=== PATIENT | female | born 2000 | race Caucasian/White ===

== ENCOUNTER 2022-10-17 10:26 | Emergency (ER) | payer OTHER, SELFPAY ==
[2022-10-17 11:42] VITALS: BP 117/63; PULSE 80; RESP 18; TEMP 36.7; O2SAT 100
--- NOTE | 2022-10-17 12:14 | ED.URI ---
HPI - URI/Sore Throat General Chief Complaint: Upper Respiratory Infection Stated Complaint: sorethroat Time Seen by Provider: 10/17/22 11:50 Source: patient Mode of arrival: ambulatory Limitations: no limitations History of Present Illness HPI Narrative: Tyrone is a 22-year-old female patient presenting to clinic today with complaints of sore throat x2 days. She denies any fever chills. She does have some nasal congestion. MD elicited complaint: sore throat and nasal congestion Related Data Home Medications Medication Instructions Recorded Confirmed No Home Medications 10/17/22 10/17/22 Allergies Allergy/AdvReac Type Severity Reaction Status Date / Time No Known Drug Allergies Allergy Unknown Other Verified 10/17/22 11:47 Review of Systems Review of Systems: Pertinent positives per HPI. Patient denies any fever, chills, rash, headache, visual changes, dizziness, cough, shortness of breath, chest pain, palpitations, nausea, vomiting, diarrhea, constipation, abdominal pain, or any urinary issues. PMFSH Comments At the time of my signature, I reviewed and agree with the nursing past medical, surgical, social, and family history. There is no relevant family history pertinent to the patient complaint. Exam Narrative: General: Well-developed, well nourished, in no apparent distress Head: Normocephalic, atraumatic Eyes: Pupils equally round and reactive to light bilaterally, EOM intact, sclera and conjunctive clear, no discharge, lids normal Ears: TMs intact and clear, ear canals clear, no drainage, grossly hearing normal. Nose: Nares patent, clear nasal discharge, no inflammation, no sinus tenderness. Mouth: Oral pharynx without lesions or masses, good dentition, MMM. Oropharynx red , postnasal drip Neck: Supple, trachea midline, no enlargement of anterior or posterior cervical nodes, no thyroid masses or goiter palpable. Cardio: Regular rate and rhythm, s1 and s2 normal, no murmur appreciated. Resp: Clear to auscultation bilaterally, no rhonchi, rales, wheezing or rubs Course Course Emergency Course: Portions of this record may have been created with voice recognition software. Level of Care: Express Care Visit Vital Signs Vital signs: Vital Signs Temperature 36.7 C 10/17/22 11:42 Pulse Rate 80 10/17/22 11:42 Respiratory Rate 18 10/17/22 11:42 Blood Pressure 117/63 10/17/22 11:42 Pulse Oximetry 100 10/17/22 11:42 Oxygen Delivery Room Air 10/17/22 11:42 Temperature 36.7 C 10/17/22 11:42 Pulse Rate 80 10/17/22 11:42 Respiratory Rate 18 10/17/22 11:42 Blood Pressure 117/63 10/17/22 11:42 Pulse Oximetry 100 10/17/22 11:42 Oxygen Delivery Room Air 10/17/22 11:42 Vital signs reviewed MDM - URI/Sore Throat MDM Narrative Medical decision making narrative: at the time of visit patient is resting comfortably on the exam table. Strep screen was obtained was negative in the clinic today. I suspect patient has viral pharyngitis / postnasal drip. Supportive measures were discussed with the patient she voiced understanding of discharge instructions and agrees to treatment plan Differential Diagnosis Differential diagnosis: Likely sinusitis, viral infection, influenza and pharyngitis Lab Data Labs: Strep Screen Presumptive Negative *(Reference Range: Negative)* Discharge Plan Discharge Clinical Impression: Pharyngitis, PND (post-nasal drip) Patient Disposition: Home, Self-Care Condition: Stable Instructions: Antibiotic Form, Pharyngitis (ED), Postnasal Drip (DC) Additional Instructions: Strep screen was negative in the clinic today. We will send for culture Increase fluids and stay well hydrated Tylenol/motrin for pain/fever Flonase and OTC antihistamines as directed Vicks vapor rub to open sinuses Sinus rinses for congestion Cepacol spray, cough drops, throat татьяна
== END 2022-10-17 12:12 | disposition home or self-care (01) ==
PROVIDERS: Emergency Provider Nurse Practitioner Family
DX: J02.9 Acute pharyngitis, unspecified (principal); R09.82 Postnasal drip
CPT/HCPCS: 87081; 87880; 99213; G0463

== ENCOUNTER 2024-07-31 10:25 | Emergency (ER) | payer MEDICAID, SELFPAY ==
--- NOTE | 2024-07-31 10:37 | ED.URI ---
HPI - URI/Sore Throat General Chief Complaint: Upper Respiratory Infection Stated Complaint: Sore throat/ Bilateral Ear Pain History of Present Illness HPI Narrative: patient is a 24 year female, past medical history significant for seasonal allergies presents to [facility] care with 2 day history of sore throat, ear pain, malaise/fatigue and suspected fever. She is just starting to cough today.She denies known sick contacts or COVID-19 exposures. She is taking [id number] cold medication with minimal symptom relief. She denies any additional associated symptoms modifying factors. She is not . Related Data Home Medications Medication Instructions Recorded Confirmed norethindrone 1 mg-ethinyl 1 tablet PO DAILY 07/31/24 07/31/24 estradiol 10 mcg (24)-iron 10 mcg(2) tablet (Lo Loestrin Fe) Allergies Allergy/AdvReac Type Severity Reaction Status Date / Time No Known Drug Allergies Allergy Unknown Other Verified 07/31/24 10:31 Review of Systems ENT: Comments: refer to HPI Exam Const: General: healthy appearing, no acute distress and alert Nutritional Appearance: well nourished Orientation/consciousness: patient oriented x3 Limitations: no limitations HENMT: Head: normal to inspection Ears: external ears normal and TM abnormal other ( TMs are retracted markedly) Face/Nose/Sinus: Normal external nose present and Normal nares present Face and sinus: normal facial exam and sinuses nontender Mouth: Yes Normal oral and palatal mucosa present Teeth and gingiva: dentition normal Throat: uvula midline Other: Patient has cobblestoning to the pharyngeal mucosa, no exudate, no tonsillar hypertrophy, uvula is midline, no trismus Eyes: Conjunctivae: conjunctivae normal Pupils: Equal, round and reactive pupils present EOM: EOMs intact bilaterally Neck: Neck: normal visual inspection, no lymphadenopathy and no meningeal signs Resp: Effort & Inspection: normal respiratory effort Auscultation: clear to auscultation bilaterally Cardio: Rate: regular rate Rhythm: regular rhythm Skin: General skin exam: normal color Rashes: no rashes Neuro: General: patient oriented x3, moves all extremities, no meningeal signs, no focal motor deficits and CN's II-XI intact bilaterally Cranial nerves: Yes Nystagmus not present Speech: normal speech Gait exam (Neuro): Normal gait present Extrem: General: normal to inspection Course Course Emergency Course: strep and COVID are negative, strep culture will reflex. Level of Care: Express Care Visit (19437) Vital Signs Vital signs: Vital Signs Temperature 36.7 C 07/31/24 10:38 Pulse Rate 77 07/31/24 10:38 Respiratory Rate 16 07/31/24 10:38 Blood Pressure 126/68 07/31/24 10:38 Pulse Oximetry 100 07/31/24 10:38 Oxygen Delivery Room Air 07/31/24 10:38 Temperature 36.7 C 07/31/24 10:38 Pulse Rate 77 07/31/24 10:38 Respiratory Rate 16 07/31/24 10:38 Blood Pressure 126/68 07/31/24 10:38 Pulse Oximetry 100 07/31/24 10:38 Oxygen Delivery Room Air 07/31/24 10:38 MDM - URI/Sore Throat MDM Narrative Medical decision making narrative: Patient has an exam and HPI consistent with a viral syndrome. Will treat with short steroid course, cough suppressant, pushing fluids, [id number] Zyrtec or Claritin and Tylenol may be continued for discomfort. Follow up with PCP in 3-5 days if symptoms not improving. Patient is agreeable plan. Differential Diagnosis Differential diagnosis: Likely upper respiratory infection, otitis media, sinusitis, pharyngitis and other ( Postnasal drip) Lab Data Labs: Lab Results 07/31/24 07/31/24 Range/Units 10:53 10:58 POC SARS CoV-2 Ag Negative (Negative) POC Grp A Strep Screen Negative (Negative) Discharge Plan Discharge Clinical Impression: Upper respiratory infection Qualifiers: URI type: acute nasopharyngitis (common cold) Qualified Code(s): J00 -
[2024-07-31 10:38] VITALS: BP 126/68; PULSE 77; RESP 16; TEMP 36.7; O2SAT 100
[2024-07-31 10:54] LABS: EDSTREPNEGPOS1 Negative (Negative)
[2024-07-31 11:00] LABS: EDCOVIDSCREEN Negative (Negative)
== END 2024-07-31 11:12 | disposition home or self-care (01) ==
PROVIDERS: Emergency Provider Nurse Practitioner Family
DX: J06.9 Acute upper respiratory infection, unspecified (principal); J00 Acute nasopharyngitis [common cold]; Z20.822 Contact with and (suspected) exposure to COVID-19
CPT/HCPCS: 87081; 87635; 87880; 99213; G0463

== ENCOUNTER 2025-09-03 09:33 | Outpatient (CLI) | payer OTHER, MEDICAID, SELFPAY ==
--- NOTE | 2025-09-03 | ECG_ITS ---
Test Date: 2025-09-03 10:33:[address] Rate: 69 P: 55 DC: 126 QRS: 64 QRSD: 89 T: 46 QT: 365 QTc: 392 Interpretive Statements SINUS RHYTHM INCOMPLETE RIGHT BUNDLE BRANCH BLOCK BASELINE ARTIFACT- II, AVR, V3-V5 BORDERLINE ECG No previous ECG available for comparison Electronically Signed On 09-03-2025 10:44:40 CDT by Jah Santiago D.O.
[2025-09-03 10:32] LABS: Anion Gap 11 mmol/L (4-12); Blood Urea Nitrogen 14 mg/dL (7-17); Calcium 9.4 mg/dL (8.4-10.2); Carbon Dioxide 24 mmol/L (22-30); Chloride 104 mmol/L (98-107); Estimated Glomerular Filt Rate > 60; Glucose 132 mg/dL (65-110); Magnesium 2.2 mg/dL (1.6-2.3); Potassium 4.0 mmol/L (3.4-5.0); Sodium 139 mmol/L (137-145)
--- OUTSIDE RECORDS SUMMARY | 2025-09-03 10:48 | XMS_ITS | Clinical Summary ---
Author Organization [address] Address [address] [place] [id number] Care Team Providers Care Drilling And Production Superintendent Name Role Phone Glendy Phillip Primary Care Provider [phone] Allergies No known active allergies Medications hydrOXYzine (ATARAX) 10 mg tablet Take 1 tablet (10 mg total) by mouth 2 (two) times a day as needed for itching 60 tablet 11/09/2023 Active LORazepam (ATIVAN) 0.5 mg tabletIndicatio ns:anxiety Take 1-2 tablets as needed for airplane flights. 4 tablet 11/09/2023 Active norethindrone-e .estradioL-iron (Lo Loestrin Fe) 1 mg-10 mcg (24)/10 mcg (2) tablet per tablet Take 1 tablet by mouth daily 84 tablet 2 11/09/2023 Active scopolamine 1 mg over 3 days patch [address] 1 patch on the skin every third day as needed (nausea) 4 patch 1 11/09/2023 Active benzonatate (TESSALON) 100 mg capsuleIndicati ons:Cough Take 1 capsule (100 mg total) by mouth 3 (three) times a day as needed for cough 42 capsule 11/21/2023 Active budesonide-form oteroL (SYMBICORT) 80-4.5 mcg/actuation inhaler Inhale 2 puffs 2 (two) times a day as needed (for cough) Rinse mouth with water after use. Do not swallow. 1 each 12/15/2023 Active Active Problems Problem Noted Date Diagnosed Date Well adult exam 06/01/2025 Overview (06/01/2025): PMH: Last pap: DUE Last tdap: 06/2013, DUE Last influenza: Last COVID: Last eye exam: BMI 23.0-23.9, adult 11/09/2023 Assessment & Plan (11/09/2023 4:32 PM CORRECTIONAL COOK): BMI Follow-up includes: nutrition counseling. Anxiety 11/09/2023 Assessment & Plan (11/09/2023 4:34 PM CORRECTIONAL COOK): Chronic. Uncontrolled. Mild, mostly situational symptoms. We will start hydroxyzine to use as needed. Discussed side effects of medication with patient including drowsiness, headache. Panic attacks 11/09/2023 Assessment & Plan (11/09/2023 4:34 PM CORRECTIONAL COOK): Chronic. 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 Start treatment with lorazepam as needed. Immunizations Immunization Administration Dates Next Due DTaP 07/03/2007, 4,2002,2002, 2002 Hep A, Pediatric 07/03/2007,09/04/2006 Hep B Vaccine 2002,2002,2002 HiB 05/31/2004,2002,2002 ,2002 Influenza, Unspecified 08/20/2023,2021(Deferred: Patient decision) MMR 07/03/2007,07/10/2003 Meningococcal ACWY, Unspecified 07/31/2019,07/11 Pneumococcal Conjugate 7-Valent 06/02/2004,10/29,2002 Polio, Unspecified 07/03/2007,05/31/2004, 002,2002 Tdap 07/11/2013 Varicella 07/03/2007,07/10/2003 Family History Medical History Relation Name Comments No Known Problems Brother No Known Problems Father No Known Problems Maternal Grandfather No Known Problems Maternal Grandmother No Known Problems Mother Cancer Paternal Grandfather Breast cancer Paternal Grandmother No Known Problems Sister 1 No Known Problems Sister 2 Relation Name Status Comments Brother Alive Father Alive Maternal Grandfather Alive Maternal Grandmother Alive Mother Alive Paternal Grandfather Alive Paternal Grandmother Alive Sister 1 Alive Sister 2 Alive Social History Tobacco Use Types Packs/Day Years Used Date Smoking Tobacco: Never Smokeless Tobacco: Never AUDIT-C Answer Date Recorded Q1: How often do you have a drink containing alc ohol? 2-4 times a month 11/09/2023 Q2: How many drinks containi ng alcohol do you have on a typical day when you are drinking? 1 or 2 11/09/2023 Q3: How often do you have si x or more drinks on one occasion? Never 11/09/2023 PHQ-2 Answer Date Recorded PHQ-2 Total Score (If total score is 3 or more points, staff should administer the PHQ-9) 0 11/09/2023 Personal Safety Answer Date Recorded Getting School Help Needed Not on file 01/04 Comments No Sex and Gender Information Value Date Recorded Sex Assigned at Not on file Legal Sex Female 8:05 AM CORRECTIONAL COOK Gender Identity Female 08/26/2024 11:05 AM CDT Sexual Orientation Straight 08/26/2024 11 :05 AM CDT Obstetrics History Last Filed Vital Signs Vital Sign Reading Time Taken Comments Blood Pressure 110/60 11/09/2023 3:33 PM CORRECTIONAL COOK Pulse 92 11/09/2023 3:33 PM CORRECTIONAL COOK Temperature 36.7 C (98 F) 11/09/2023 3:33 PM CORRECTIONAL COOK Respiratory Rate 16 11/09/2023 3:33 PM CORRECTIONAL COOK Oxygen Saturation 98% 11/09/2023 3:33 PM CORRECTIONAL COOK Inhaled Oxygen Concentration - - Weight 62.3 kg (137 lb 6.4 oz) 11/09/2023 3:33 P M CORRECTIONAL COOK Height 162.6 cm (5' 4) 11/09/2023 3:33 PM CORRECTIONAL COOK Body Mass Index 23.58 11/09/2023 3:33 PM CORRECTIONAL COOK Plan of Treatment Health Maintenance Due Date Last Done Comments Cervical Cancer Screening 2002 Hepatitis C Screening 2002 HPV Vaccines (1 - 3-dose series) 2017 Meningococcal B Vaccine (1 o f 2 - Standard) 2018 Regular Well Visit/Exam 18-64 2020 DTaP/Tdap/Td Vaccine (7 - Td or Tdap) 07/11/2023 07/11/2013, 07/03/2007, 05/31/2004, Additional history exists Depression Screening 11/09/2024 11/09/2023, 11/09/20 23 Covid-19 Vaccine (3 - 2024-2 6 season) 2025 04/21/2021, 03/31/2021 Influenza Vaccine (#1) 2025 08/20/2023 Hepatitis B Screening Completed 2002 , 2002, 2002 Pneumococcal vaccine <65 Completed 004, 2002, 2002 Varicella Vaccines Completed 07/03/2007, 07/10/[address] [facility] HMO/PPO Address: [facility] [address] [place] [address] [facility] CHOICE PLUS [facility] HMO/PPO Address: [address] [address] [place] [address] Care Teams Drilling And Production Superintendent Relationship Specialty Start Date End Date Glendy Phillip PA [address] [place] [address] PCP - General Family Medicine 11/06/23
[2025-09-03 11:03] LABS: Thyroid Stimulating Hormone Reflex 0.756 uIU/mL (0.465-4.68)
== END 2025-09-03 09:34 | disposition home or self-care (01) ==
LOC: ANHLAB 09:36
PROVIDERS: PCP Nurse Practitioner; Visit Provider Nurse Practitioner
DX: R94.31 Abnormal electrocardiogram [ECG] [EKG] (principal); R00.2 Palpitations
CPT/HCPCS: 36415; 80048; 83735; 84443; 93005

== ENCOUNTER 2025-10-06 16:35 | Outpatient (CLI) | payer OTHER, SELFPAY ==
[2025-10-06 17:22] LABS: Beta HCG Quantitative 118.80 mIU/ML
== END 2025-10-06 16:36 | disposition home or self-care (01) ==
LOC: ANHLAB 16:37
PROVIDERS: PCP Nurse Practitioner; Visit Provider Nurse Practitioner
DX: Z32.01 Encounter for pregnancy test, result positive (principal)
CPT/HCPCS: 36415; 84702

== ENCOUNTER 2025-10-08 14:53 | Outpatient (CLI) | payer OTHER, SELFPAY ==
--- OUTSIDE RECORDS SUMMARY | 2025-09-17 11:30 | XMS_ITS | Encounter Summary ---
Author Organization [facility] Address [facility] [place] [address] Care Team Providers Care Type Proof Reproducer Name Role Phone Bryanna Liang NP Primary Care Provider [phone] Reason for Visit * Reason Onset Date Comments Holter Monitor 09/17/2025 * Imaging (Routine) - Closed Specialty Diagnoses / Procedures Referred By Contac t Referred To Contact Diagnoses Palpitations Procedures EVENT RECORDER (ECG) UP TO 30 DAYS COMPLETE Bryanna Liang NP [address] [address] Phone: tel: fax: Referral ID Status Reason Start Date Expiration Date Visits Re quested Visits Authorized [id number] Closed 09/06/2025 09/06/2026 1 1 Encounter Details Date Type Department Care Team (Late st Contact Info) Description 09/17/2025 12:30 PM CDT Telephone [facility] [address] Bryanna Liang NP [address] [address] Holter Monitor Social History Tobacco Use Types Packs/Day Years Used Date Smoking Tobacco: Never Smokeless Tobacco: Never Alcohol Use Standard Drinks/Week Comments Not Currently 0 (1 standard drink = 0.6 oz pur e alcohol) AUDIT-C Answer Date Recorded Q1: How often do you have a drink containing alc ohol? Never 01/26/2021 Average Number of Drinks Not on file 021 Frequency of Binge Drinking Not on file 07/2021 PHQ-2 Answer Date Recorded Patient Health Questionnaire-2 Score 1 07/08/2025 Comments No Sex and Gender Information Value Date Recorded Sex Assigned at Female 09/03/2025 8:48 AM CDT Legal Sex Female 5:03 PM CDT Gender Identity Female 09/03/2025 8:48 AM CDT Sexual Orientation Not on file documented as of this encounter Progress Notes * Josie Nelsonician - 09/17/2025 12:12 PM CDT BG Shipped [employer] out: [id number] FedEx in: [id number] documented in this encounter Plan of Treatment Not on file documented as of this encounter Procedures Procedure Name Priority Date/Time Associated Diagnosis Comments EVENT RECORDER (ECG) UP TO 30 DAYS COMPLETE Routine 10/03/2025 11:55 AM DIP FILLER Palpitations documented in this encounter Results * EVENT RECORDER (ECG) UP TO 30 DAYS COMPLETE (10/03/2025 11:55 AM DIP FILLER) Impressions [facility] - 10/03/2025 11:55 AM DIP FILLER [place], [place] [address] MOBILE CARDIAC CROP PICKER REPORT Patient Name: Marlene Kaur : 2000 Manager Of Drilling Date: 09/19/2025 End Date: 09/25/2025 Performed At: [place], [place] Interpreting Manager R D: Benjamin Mixon MD PCP: BRYANNA LIANG NP Ordering Provider: Bryanna Liang NP INDICATION: Palpitations DURATION OF MONITORIN days NUMBER OF TRANSMISSIONS: 20 (13 auto transmissions, 7 manual, 0 periodic) INTERPRETATION: A 7-day mobile cardiac quality assurance monitor body analyzed. Interpretable data was 5 days, 11 hours and 45 minutes (87% of monitoring period). The baseline rhythm was sinus rhythm. There was not atrial fibrillation or atrial flutter observed. . A minimum heart rate was 52 bpm on 09/20/2025 at 5:37 AM. A maximum heart rate in sinus rhythm was 165 bpm on 09/21/2025 at 2:07 PM. There were 0 pauses observed. The manual triggered episodes mostly had no reported symptoms to correlate with sinus rhythm. There were 2 events for palpitations both correlating with sinus rhythm. The auto triggered episodes were for isolated premature atrial complexes, sinus bradycardia, isolated premature ventricular complexes, sinus tachycardia,. The overall ectopy burden was very low less than 1%. CONCLUSION: 7-day mobile cardiac telemetry was with symptom triggered events generally correlated with sinus rhythm. There were no clinically significant arrhythmias observed. Interpreting Manager R D: Dr. Benjamin Mixon us Bryanna Liang NP CV VASCULAR ORDERABLES Fi nal Result [facility] documented in this encounter Visit Diagnoses Diagnosis Palpitations documented in this encounter Additional Health Concerns Assessment Noted Time PHQ-9 Depression Total Score: 17 025 2:46 PM CDT documented as of this encounter Care Teams Type Proof Reproducer Relationship Specialty Start Date End Date Bryanna Liang NP [address] [facility] [address] [place] [address] PCP - General NURSE PRACTITIONER 07/08/25 documented as of this encounter
[2025-10-08 16:21] LABS: Beta HCG Quantitative 278.65 mIU/ML
--- OUTSIDE RECORDS SUMMARY | 2025-10-08 22:59 | XMS_ITS | Clinical Summary ---
Author Organization [facility] Address [address] [place] [address] Care Team Providers Care Central Scheduler Name Role Phone Bryanna Liang NP Primary Care Provider +1 [phone] Allergies No known active allergies Medications LO LOESTRIN FE 1 MG-10 MCG / 10 MCG Tab Take 1 tablet by mouth daily. 06/17/2025 Active busPIRone (BUSPAR) 5 MG tabletIndication s:Generalized anxiety disorder Take 1 tablet (5 mg total) by mouth 2 (two) times daily. 90 tablet 09/03/2025 Active Active Problems Problem Noted Date Diagnosed Date Abdominal bloating 07/09/2025 Assessment & Plan (07/09/2025 12:24 PM CDT): Not at this current time. Not exactly sure because of this I did highly encourage her to schedule her pelvic ultrasound that was ordered by her software design manager. Patient to be updated on her results. Symptoms are not found after gynecological evaluation and after following a low FODMAP diet. Would recommend referral to GI. Encourage following a low FODMAP diet which can help eliminate gas, bloating and pain. Gas-X to be tried for gas/bloating relief. Recommend getting soluble fiber in your diet which is found in oat bran, barley, and and avoid insoluble fiber. Women should try to eat at least 21 to 25 grams of fiber a day A prescription for an antispasmodic can be considered in patients experiencing pain in bloating. Peppermint oil has an antispasmodic property and is recommended by the [employer] for the relief of IBS symptoms it is available as drops or enteric-coated sustained-release tablet. Screening for thyroid disorder 07/09/2025 Assessment & Plan (07/09/2025 12:23 PM CDT): I will recheck TSH and also check for rafal's. 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 She is going to consider this. Encourage stress living activity and therapy as well. Will continue to monitor symptoms and if OCD is still not well-controlled would encourage therapy again in addition to medication adjustments Generalized anxiety disorder 07/08/2025 Assessment & Plan (07/09/2025 12:21 PM CDT): Shared this is making we will begin Wellbutrin XR 150 mg daily since patient already having concerns of weight gain and decreased libido. We discussed other SSRIs that could be helpful for anxiety and OCD but will trial Wellbutrin for since patient has never taken before which did not affect libido or weight. Discussed how to take and side effects. Patient has no contraindications for use Encounters Date Type Department Care Team Description 10/08/2025 Results Follow-Up [facility] [address] [place] [address] Bryanna Liang NP EVENT RECORDER (ECG) UP TO 30 DAYS COMPLETE 10/06/2025 Scan Isai INFO SRVCS Scanned, Doc Med Group Lab (SCAN) 10/06/2025 MyChart Message Enc [facility] [address] [place] [address] Bryanna Liang NP Blood work 09/17/2025 12:30 PM CDT Telephone [facility], [address] [address] Bryanna Liang NP Holter Monitor 09/10/2025 Telephone [facility], [address] [place] [address] Bryanna Liang NP Orders 09/05/2025 Telephone [facility], [address] [place] [address] Brenda Sapp, RMKwame Schedule Test (7 day monitor) 09/04/[address] [place], [place] [id number] Bryanna Liang NP Results 09/03/2025 8:40 AM CDT Office Visit [address] [place], [place] [phone] Bryanna Liang NP Anxiety; Palpitations 09/03/2025 Scan Isai INFO SRVCS Scanned, Doc Med Group ECG (SCAN); Lab (SCAN) 09/03/2025 Travel 08/12/2025 Forgotten [place] Message Enc [address] [place], [place] [phone] Bryanna Liang NP Wellbutrin 07/09/2025 Results Follow-Up [address] [place], [place] [address] Bryanna Liang NP TSH W/REFLEX, CBC W/DIFF AUTOMATED, THYROGLOBULIN, ANTIBODY, THYROID PEROXIDASE ANTIBODY 07/08/2025 3:00 PM CDT Office Visit [address] [place], [place] [phone] Bryanna Liang NP Anxiety (Patient would like to discuss restarting medications. ); Annual 07/08/2025 - 07/08/2025 11:59 PM CDT Hospital Encounter [facility] [address] [place] [address] Bryanna Liang NP Discharge Disposition: Home or Self Care (Routine Discharge) 07/08/2025 Travel from Last 3 Months Immunizations Immunization Administration Dates Next Due Dtap 07/03/2007, 4,2002,10/20,2002 Hepatitis A (Havrix [address]) 07/03/2007, 006 Hepatitis B (Generic: Adult) 2002,08/19/20 02,2002 Hib (Generic) 05/31/2004, 3,2002,07/23 Influenza (Generic) 08/20/2023 MENINGOCOCCAL A C Y&W-135 oligosaccharide (MENVEO) 07/11/2013 MMR 07/10/2003 MMR (MMRII) 07/03/2007 Menactra 07/31/2019 Meningococcal (Generic) 07/11/2013 Opv 2002,2002 Pneumococcal (Prevnar 7) 05/31/2004,2002,0 2002 Polio Opv (Generic) 07/03/2007,05/31/2004 Tdap (Boostrix) 07/11/2013 Tdap (Generic) 07/11/2013 Varicella (Generic) 07/10/2003 Varicella (Varivax) 07/03/2007 Social History Tobacco Use Types Packs/Day Years Used Date Smoking Tobacco: Never Smokeless Tobacco: Never Tobacco Cessation:Counseling Given: No Alcohol Use Standard Drinks/Week Comments Not Currently [...] AM CDT Sexual Orientation Not on file Last Filed Vital Signs Vital Sign Reading Time Taken Comments Blood Pressure 126/72 09/03/2025 8:45 AM CDT Pulse 77 09/03/2025 8:45 AM CDT Temperature 36.4 C (97.5 F) 09/03/2025 8:45 AM CDT Respiratory Rate 16 09/03/2025 8:45 AM CDT Oxygen Saturation 100% 09/03/2025 8:45 AM CDT Inhaled Oxygen Concentration - - Weight 63 kg (139 lb) 09/03/2025 8:45 AM CDT Height 165.1 cm (5' 5) 09/03/2025 8:45 AM CDT Body Mass Index 23.13 09/03/2025 8:45 AM CDT Plan of Treatment Health Maintenance Due Date Last Done Comments Cervical Cancer Screening Pap Smear (Age 21 to 29) Every 3 Years 2002 Cervical Cancer Screening 2002 HPV Vaccines (1 - 3-dose series) 2017 Chlamydia Screening Females ages 16-24 2018 Meningococcal B Vaccine (1 of 2 - Standard) 2018 Hepatitis C 2020 DTaP, Tdap and Td Vaccines (8 - Td or Tdap) 07/11/2023 07/11/2013, 07/11/2013, 07/03/2007, Additional history exists COVID-19 Vaccine ( season) 2025 04/21/2021, 03/31/2021 Influenza Adult (#1) 2025 10/05/2023, 08/20/2023, 10/07/2003 Annual Physical 07/08/2026 07/08/2025 Hepatitis B Vaccines Completed 2002, 2002, 2002 Pneumococcal Vaccine: Pediatrics (0 to 5 Years) and At-Risk Patients (6 to 49 Years) Aged Out 05/31/2004, 05/31/2004, 2002, Additional history exists No longer eligible based on patient's age to complete this topic Hepatitis A Vaccines Completed 07/03/2007, 09/04/20 06 Meningococcal Vaccine Completed 07/31/2019 , 07/11/2013, 07/11/2013 PHQ-2 (Physician [place]) Completed 07/08/2025 RSV Immunizations Under 20 Months Aged Out No longer eligible based on patient's age to complete this topic Procedures Procedure Name Priority Date/Time Associated Diagnosis Comments OUTSIDE LAB (SCAN ORDER) 10/06/2025 EVENT RECORDER (ECG) UP TO 30 DAYS COMPLETE Routine 10/03/2025 11:55 AM INDUCTION MACHINE OPERATOR Palpitations ECG GENERIC (SCAN ORDER) 09/03/2025 OUTSIDE LAB (SCAN ORDER) 09/03/2025 OUTSIDE LAB (SCAN ORDER) 09/03/2025 COLLECTION VENOUS BLOOD VENIPUNCTURE Routine 07/08/2025 3:48 PM CDT Screening for thyroid disorder MICROSOMAL ANTIBODY Routine 07/08/2025 3 :48 PM CDT Screening for thyroid disorder THYROGLOBULIN, ANTIBODY Routine 07/08/2025 3:48 PM CDT Screening for thyroid disorder CBC W/DIFF AUTOMATED Routine 07/08/2025 3:48 PM CDT Screening for endocrine, metabolic and immunity disorder TSH W/REFLEX Routine 07/08/2025 3:48 PM CDT Screening for thyroid disorder THYROTROPIN BIND INHIB IMMUNO Routine 07/08/2025 3:48 PM CDT Screening for thyroid disorder from Last 3 Months Results * OUTSIDE LAB (SCAN ORDER) (10/06/2025) Only the most recent of3 resultswithin the time period is included. 10/06/2025 us Doc [facility] Scanned SCANNING Final Resu lt * EVENT RECORDER (ECG) UP TO 30 DAYS COMPLETE (10/03/2025 11:55 AM INDUCTION MACHINE OPERATOR) [facility] - 10/03/2025 11:55 AM INDUCTION MACHINE OPERATOR [place], [place] [address] MOBILE CARDIAC CITY CLERK REPORT Patient Name: Marlene Kaur : 2000 Singe Machine Operator Date: 09/19/2025 End Date: 09/25/2025 Performed At: [place] [facility], [place] Interpreting Market Development Analyst: Benjamin Mixon MD PCP: BRYANNA LIANG NP Ordering Provider: Bryanna Liang NP INDICATION: Palpitations DURATION OF MONITORIN days NUMBER OF TRANSMISSIONS: 20 (13 auto transmissions, 7 manual, 0 periodic) INTERPRETATION: A 7-day mobile cardiac monitoring and evaluation advisor analyzed. Interpretable data was 5 days, 11 [...] were no clinically significant arrhythmias observed. Interpreting Market Development Analyst: Dr. Benjamin Mixon Bryanna Liang NP CV VASCULAR ORDERABLES Fi nal Result [facility] * ECG GENERIC (SCAN ORDER) (09/03/2025) 09/03/2025 us [facility] Scanned SCANNING Final Resu lt * THYROTROPIN BIND INHIB IMMUNO (07/08/2025 3:48 PM CDT) THYROTROPIN-BINDIN G INHIBITORY IMMUNOGLOBULIN (TBII) <1.00 < OR = 2.00 IU/L [facility] Comment: This test was performed using the TRAb Antibody KAREN method which is standardized against the 1st International Standard 90/672 and is reported in International Units (IU/L). The reference range reported was established specifically for this test method. 07/08/2025 3:48 PM CDT 07/09/2025 6:03 AM CDT Narrative Resulting Agency Comment Performing Organization Information: Site ID: [id number] Name: [facility], Address: [address] [place] [id number] Director: Allison Zimmer MD,PhD,ANDRA Bryanna Liang BIOLOGY FACULTY MEMBER LABORATORY Final Res ult Performing Organization Address City/[facility]/ZIP Co de Phone Number [facility] [place] [address] [address], * TSH W/REFLEX (07/08/2025 3:48 PM CDT) TSH 1.178 0.358 - 3.740 uIU/ML 07/08/2025 7:52 PM CDT [facility] 07/08/2025 3:48 PM CDT Bryanna Liang NP LABORATORY Final Res ult Performing Organization Address [facility] Co de Phone Number [facility] [address] [place] [address], * THYROID PEROXIDASE ANTIBODY (07/08/2025 3:48 PM CDT) THYROID PEROXIDASE MICROSOMAL AB <4 IU/ML 07/10/2025 3:16 PM CDT [facility] Comment: NEGATIVE: < 25 IU/ML EQUIVOCAL: 25 to 35 IU/ML POSITIVE: > 35 IU/ML 07/08/2025 3:48 PM CDT Bryanna Liang BIOLOGY FACULTY MEMBER LABORATORY Final Res ult Performing Organization Address City/[facility] Co de Phone Number [facility] [address] [place] [address], [place] [phone] * THYROGLOBULIN, ANTIBODY (07/08/2025 3:48 PM CDT) THYROGLOBULIN AB <12 IU/ML 07/10/20 3:16 PM CDT [facility] Comment: NEGATIVE: < 40 IU/ML EQUIVOCAL: 40 to 60 IU/ML POSITIVE: > 60 IU/ML 07/08/2025 3:48 PM CDT Bryanna Liang BIOLOGY FACULTY MEMBER LABORATORY Final Res ult Performing Organization Address [facility] [[email or web address]] de Phone Number [facility] [address] [place] [address], [place] [phone] * (ABNORMAL) CBC W/DIFF AUTOMATED (07/08/2025 3:48 PM CDT) WBC 6.67 4.00 - 10.80 x10'3/uL 07/08/2025 7:49 PM CDT [facility] RBC 4.19 4.10 - 5.40 x10'6/uL 07/08/2025 7:49 PM CDT [facility] HGB 12.9 12.0 - 16.0 G/DL 07/08/2025 7:49 PM CDT [facility] HCT 38.0 36.0 - 47.0 % 07/08/2025 7:49 PM CDT [facility] MCV 90.7 78.0 - 100.0 FL 07/08/2025 7:49 PM CDT [facility] MCH 30.8 27.0 - 31.0 PG 07/08/2025 7:49 PM CDT [facility] MCHC 33.9 33.0 - 36.0 G/DL 07/08/2025 7:49 PM CDT [facility] RDW 11.1(L) 11.5 - 14.5 % 07/08/2025 7:49 PM CDT [facility] PLT 228 150 - 350 x10'3/uL 07/08/2025 7:49 PM CDT [facility] MPV 10.8(H) 7.4 - 10.4 FL 07/08/2025 7:49 PM CDT [facility] DIFFERENTIAL TYPE AUTOMATED DIFFERENTIAL 07/08/2025 7:49 PM CDT [facility] NEUTROPHILS % 48.7 % 07/08/2025 7:49 PM CDT [facility] LYMPHOCYTES % 40.5 % 07/08/2025 7:49 PM CDT [facility] MONOCY[facility] % 9.3 % 07/08/2025 7:49 PM CDT [facility] EOSINOPHILS % 0.9 % 07/08/2025 7:49 PM CDT [facility] BASOPHILS % 0.6 % 07/08/2025 7:49 PM CDT [facility] IMMATURE GRANS % 0.0 % 07/08/2025 7:49 PM CDT [facility] ABS. NEUTROPHILS 3.25 1.60 - 8.30 x10'3/uL 07/08/2025 7:49 PM CDT [facility] ABS. LYMPHOCYTES 2.70 0.80 - 4.70 x10'3/uL 07/08/2025 7:49 PM CDT [facility] ABS. MONOCYTES 0.62 0.00 - 1.50 x10'3/uL 07/08/2025 7:49 PM CDT [facility] ABS. EOSINOPHILS 0.06 0.00 - 0.40 x10'3/uL 07/08/2025 7:49 PM CDT [facility] ABS. BASOPHILS 0.04 0.00 - 0.20 x10'3/uL 07/08/2025 7:49 PM CDT [facility] ABS. IMMATURE GRANULOCYTES 0.00 0.00 - 0.03 x10'3/uL 07/08/2025 7:49 PM CDT [facility] 07/08/2025 3:48 PM CDT us Bryanna Liang BIOLOGY FACULTY MEMBER LABORATORY Final Res ult [facility] [address] [place] [address], from Last 3 Months Insurance MEDICAID [facility] Care Teams Central Scheduler Relationship Specialty Start Date End Date Bryanna Liang NP [address] [place] [address] PCP - General NURSE PRACTITIONER 07/08/25
--- OUTSIDE RECORDS SUMMARY | 2025-10-08 22:59 | XMS_ITS | Encounter Summary ---
Author Organization [facility] Address [facility] [place] [address] Care Team Providers Care Negative Turner Apprentice Name Role Phone Bryanna Liang TIE BUYER Primary Care Provider [phone] [phone] Encounter Details Date Type Department Care Team (Late st Contact Info) Description 08/12/2025 Mezmerizt Message Enc [facility] Medical Group Family Medicine [facility] [address] [facility] [address] [place] [phone] Bryanna Liang, TIE BUYER [address] [place] [phone] Wellbutrin Social History Tobacco Use Types Packs/Day Years [...] on file documented as of this encounter Plan of Treatment Not on file documented as of this encounter Visit Diagnoses Not on filedocumented in this encounter Additional Health Concerns Assessment Noted Time PHQ-9 Depression Total Score: 17 025 2:46 PM CDT documented as of this encounter Care Teams Negative Turner Apprentice Relationship Specialty Start Date End Date Bryanna Liang NP [address] [place] [address] PCP - General NURSE PRACTITIONER 07/08/25 documented as of this encounter
--- OUTSIDE RECORDS SUMMARY | 2025-10-08 22:59 | XMS_ITS | Encounter Summary ---
Author Organization [facility] Address [facility] [place] [address] Care Team Providers Care Stator Connector Name Role Phone Bryanna Liang BUTTERMILK DRIER OPERATOR Primary Care Provider [phone] Encounter Details Date Type Department Care Team (Late st Contact Info) Description 10/08/2025 Results Follow-Up [facility] Medical Group Family Medicine [facility] [address] [facility] [address] [place] [phone] Bryanna Liang, ELI [address] [place] [id number] EVENT RECORDER (ECG) UP TO 30 DAYS COMPLETE Social History Tobacco Use Types Packs/Day Years [...] documented as of this encounter Care Teams Stator Connector Relationship Specialty Start Date End Date Bryanna Liang NP [address] [place] [address] PCP - General NURSE PRACTITIONER 07/08/25 documented as of this encounter
--- OUTSIDE RECORDS SUMMARY | 2025-10-08 22:59 | XMS_ITS | Encounter Summary ---
Author Organization [facility] Address [facility] [place] [address] Care Team Providers Care Quarrying Manager Name Role Phone Bryanna Liang NP Primary Care Provider [phone] [phone] Reason for Visit * Reason Comments Lab (SCAN) Encounter Details Date Type Department Care Team (Latest Contact Info) Description 10/06/2025 Scan HEALTH INFO SRVCS Scanned, Doc Med [facility] Lab (SCAN) Social History Tobacco Use Types Packs/Day Years [...] Diagnosis Comments OUTSIDE LAB (SCAN ORDER) 10/06/2025 documented in this encounter Results * OUTSIDE LAB (SCAN ORDER) (10/06/2025) 10/06/2025 us Doc [facility] Scanned SCANNING Final Resu lt documented in this encounter Visit Diagnoses Not on filedocumented in this encounter Additional Health Concerns Assessment Noted Time PHQ-9 Depression Total Score: 17 025 2:46 PM CDT documented as of this encounter Care Teams Quarrying Manager Relationship Specialty Start Date End Date Bryanna Liang NP [address] [place] [address] PCP - General NURSE PRACTITIONER 07/08/25 documented as of this encounter
--- OUTSIDE RECORDS SUMMARY | 2025-10-08 22:59 | XMS_ITS | Encounter Summary ---
Author Organization [facility] Address [facility] [place] [address] Care Team Providers Care Corporate Director Talent Assessment Name Role Phone Bryanna Liang NP Primary Care Provider [phone] [phone] Encounter Details Date Type Department Care Team (Late st Contact Info) Description 10/06/[address] [employer] [address] [facility] Medical Group Family Medicine [facility] [address] [facility] [address] [place] [phone] Bryanna Liang NP [address] [place] [phone] Blood work Social History Tobacco Use Types Packs/Day Years [...] as of this encounter Progress Notes * Bryanna Liang NP - 10/08/2025 2:02 PM CST Order placed for a follow up HCG. Can you please fax to [facility] ON BALL MACHINE TENDER * Bryanna Liang NP - 10/06/2025 12:32 PM CST Can you please fax HCG blood test to [facility] ON BALL MACHINE TENDER documented in this encounter Plan of Treatment Scheduled Orders Name Type Priority Associated Diagnoses Orde r Schedule HCG QUANT (SERUM)-CHORIONIC GONADOTROPIN Lab Routine Positive test ([facility]) Expected: 10/06/2025, Expires: 10/06/2026 HCG QUANT (SERUM)-CHORIONIC GONADOTROPIN Lab Routine Positive test ([facility]) Expected: 10/08/2025, Expires: 10/08/2026 documented as of this encounter Visit Diagnoses Diagnosis Positive test ([facility])- Primary examination or test, positive result documented in this encounter Additional Health Concerns Assessment Noted Time PHQ-9 Depression Total Score: 025 2:46 PM CDT documented as of this encounter Care Teams Corporate Director Talent Assessment Relationship Specialty Start Date End Date Bryanna Liang NP [address] [place] [address] PCP - General NURSE PRACTITIONER 07/08/25 documented as of this encounter
--- OUTSIDE RECORDS SUMMARY | 2025-10-08 23:00 | XMS_ITS | Clinical Summary ---
Author Organization [address] Address [address] [place] [address] Care Team Providers Care Meat Market Manager Name Role Phone Glendy Phillip Primary Care Provider [phone] [phone] Allergies No known active allergies Medications hydrOXYzine [...] 11/09/2023 Assessment & Plan (11/09/2023 4:32 PM STATIONARY ENGINEER SUPERVISOR): BMI Follow-up includes: nutrition counseling. Anxiety 11/09/2023 Assessment & Plan (11/09/2023 4:34 PM STATIONARY ENGINEER SUPERVISOR): Chronic. Uncontrolled. Mild, mostly situational symptoms. We will start hydroxyzine to use as needed. Discussed side effects of medication with patient including drowsiness, headache. Panic attacks 11/09/2023 Assessment & Plan (11/09/2023 4:34 PM STATIONARY ENGINEER SUPERVISOR): Chronic. 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 [...] on file Legal Sex Female 8:05 AM STATIONARY ENGINEER SUPERVISOR Gender Identity Female 08/26/2024 11:05 AM CDT Sexual Orientation Straight 08/26/2024 11 :05 AM CDT Last Filed Vital Signs Vital Sign Reading Time Taken Comments Blood Pressure 110/60 11/09/2023 3:33 PM STATIONARY ENGINEER SUPERVISOR Pulse 92 11/09/2023 3:33 PM STATIONARY ENGINEER SUPERVISOR Temperature 36.7 C (98 F) 11/09/2023 3:33 PM STATIONARY ENGINEER SUPERVISOR Respiratory Rate 16 11/09/2023 3:33 PM STATIONARY ENGINEER SUPERVISOR Oxygen Saturation 98% 11/09/2023 3:33 PM STATIONARY ENGINEER SUPERVISOR Inhaled Oxygen Concentration - - Weight 62.3 kg (137 lb 6.4 oz) 11/09/2023 3:33 P M STATIONARY ENGINEER SUPERVISOR Height 162.6 cm (5' 4) 11/09/2023 3:33 PM STATIONARY ENGINEER SUPERVISOR Body Mass Index 23.58 11/09/2023 3:33 PM STATIONARY ENGINEER SUPERVISOR Plan of Treatment Health Maintenance Due Date Last Done Comments Cervical Cancer Screening 2002 Hepatitis C Screening 2002 HPV Vaccines (1 - 3-dose series) 2017 Meningococcal B Vaccine (1 o f 2 - Standard) 2018 Regular Well Visit/Exam 18-64 2020 DTaP/Tdap/Td Vaccine (7 - Td or Tdap) 07/11/2023 07/11/2013, 07/03/2007, 05/31/2004, Additional history exists Depression Screening 11/09/2024 11/09/2023, 11/09/20 23 Covid-19 Vaccine (2024-12 6 season) 2025 04/21/2021, 03/31/2021 Influenza Vaccine (#1) 2025 08/20/2023 Hepatitis B Screening Completed 2002 , 2002, 2002 Pneumococcal vaccine <65 Completed 004, 2002, 2002 Varicella Vaccines Completed 07/03/2007, 07/10/2003 Insurance [employer] [facility]ICE PLUS [facility] Care Teams Meat Market Manager Relationship Specialty Start Date End Date Glendy Phillip PA [address] [place] [address] PCP - General Family Medicine 11/06/23
== END 2025-10-08 14:54 | disposition home or self-care (01) ==
PROVIDERS: PCP Nurse Practitioner; Visit Provider Nurse Practitioner
DX: Z32.01 Encounter for pregnancy test, result positive (principal)
CPT/HCPCS: 36415; 84702